=== PATIENT | female | born 1990 | race Caucasian/White ===

== ENCOUNTER → 2021-01-19 | Outpatient (CLI) | payer BC ==
[~2021-01-19] MED LIST: CLARITIN10 MG PO; COLACE 100MG C100 MG PO; IBUPROFEN600 MG PO; LORTAB 5-325 M1 EACH PO; PERCOCET 5/325 T1 EA PO; PRENATAL VITAM1 EAC8 PO; TRANDATE 100 M100 MG PO; ZANTAC150 MG PO; ZOLOFT50 MG PO; [UNRECOGNIZED DRUG - REMARK]
== END ==
LOC: EXRD 14:43
DX: U07.1 COVID-19 (principal); R06.00 Dyspnea, unspecified
CPT/HCPCS: 71046

== ENCOUNTER → 2021-07-03 | Outpatient (CLI) | payer BC | LOC: ECHO 12:36 → US 14:00 | DX: R07.89 Other chest pain (principal); R00.2 Palpitations; E04.1 Nontoxic single thyroid nodule; I08.1 Rheumatic disorders of both mitral and tricuspid valves; E04.2 Nontoxic multinodular goiter | CPT/HCPCS: ECHO; 76536; 93306 ==

== ENCOUNTER → 2021-08-03 | Outpatient (CLI) | payer BC ==
[2021-08-03 07:14] LABS: HEMOGLOBIN 14.2 gm/dl (12.3-15.3); RED BLOOD COUNT 4.62 M/UL (4.00-5.10); WHITE BLOOD COUNT 9.4 K/UL (4.5-11.0)
[2021-08-03 07:48] LABS: BUN/CREATININE RATIO 16 (0-10)
[2021-08-04 08:13] LABS: ANTISTREPTOLYSIN O AB 25.1 IU/mL (0.0-200.0); LUTEINIZING HORMONE(LH) 11.9 mIU/mL (.); PROLACTIN 7.7 ng/mL (4.8-23.3); RHEUMATOID ARTHRITIS FACTOR <10.0 IU/mL (0.0-13.9); THYROID PEROXIDASE (TPO) AB <8 IU/mL (0-34)
[2021-08-05 16:14] LABS: TESTOSTERONE, SERUM 24 ng/dL (8-60)
== END ==
LOC: LAB 05:59
PROVIDERS: Nurse Practitioner Family
DX: Z00.00 Encounter for general adult medical examination without abnormal findings (principal); M25.50 Pain in unspecified joint; U07.1 COVID-19; R06.00 Dyspnea, unspecified; E78.49 Other hyperlipidemia; Z68.36 Body mass index [BMI] 36.0-36.9, adult; L25.9 Unspecified contact dermatitis, unspecified cause; J30.9 Allergic rhinitis, unspecified; Z13.220 Encounter for screening for lipoid disorders; R53.83 Other fatigue; E55.9 Vitamin D deficiency, unspecified; R10.13 Epigastric pain; R68.89 Other general symptoms and signs; R00.2 Palpitations
CPT/HCPCS: 36415; 80053; 80061; 82550; 82607; 82670; 83001; 83002; 83615; 84146; 84402; 84403; 84439; 84443; 84481; 84550; 85025; 85652; 86038; 86060; 86141; 86376; 86431; 86800

== ENCOUNTER → 2021-09-23 | Outpatient (CLI) | payer BC | LOC: MRI 09-17 11:00 → EMI 12:57 → MRI 12:57 | DX: S83.282A Other tear of lateral meniscus, current injury, left knee, initial encounter (principal); M22.42 Chondromalacia patellae, left knee | CPT/HCPCS: 73721 ==

== ENCOUNTER 2021-11-27 12:01 | Emergency (ER) | payer BC ==
[2021-11-27 12:40] LABS: HEMOGLOBIN 14.6 gm/dl (12.3-15.3); RED BLOOD COUNT 4.72 M/UL (4.00-5.10); WHITE BLOOD COUNT 11.4 K/UL (4.5-11.0)
[2021-11-27 13:22] LABS: BUN/CREATININE RATIO 15 (0-10)
== END 2021-11-27 15:00 | disposition home or self-care (01) ==
LOC: ER1 12:01
PROVIDERS: Emergency Medicine
DX: R07.89 Other chest pain (principal); I10 Essential (primary) hypertension
CPT/HCPCS: 71045; 80053; 82550; 82553; 83874; 84484; 85025; 93005; 99285

== ENCOUNTER → 2022-01-04 | Outpatient (CLI) | payer BC | LOC: RAD 12:15 | DX: S99.911A Unspecified injury of right ankle, initial encounter (principal); M25.571 Pain in right ankle and joints of right foot; X58.XXXA Exposure to other specified factors, initial encounter | CPT/HCPCS: 73610; 73630 ==

== ENCOUNTER → 2022-03-11 | Outpatient (CLI) | payer BC | LOC: RAD 13:15 | DX: J18.9 Pneumonia, unspecified organism (principal) | CPT/HCPCS: 71046 ==

== ENCOUNTER → 2022-03-29 | Outpatient (CLI) | payer BC ==
[2022-03-29 09:22] LABS: BUN/CREATININE RATIO 15 (0-10)
== END ==
LOC: LAB 08:32
PROVIDERS: Internal Medicine Cardiovascular Disease
DX: I10 Essential (primary) hypertension (principal); I20.9 Angina pectoris, unspecified; R00.2 Palpitations; R53.83 Other fatigue; E78.5 Hyperlipidemia, unspecified; R55 Syncope and collapse; Z00.00 Encounter for general adult medical examination without abnormal findings
CPT/HCPCS: 36415; 80048; 80061; 80076; 84439; 84443

== ENCOUNTER → 2022-05-04 | Outpatient (CLI) | payer BC | LOC: EXRD 13:27 | DX: R07.9 Chest pain, unspecified (principal); R06.02 Shortness of breath | CPT/HCPCS: 71046 ==